=== PATIENT | male | born 1985 | race Caucasian/White ===

== ENCOUNTER 2016-11-04 15:28 | Emergency (ER) | payer OTHER ==
[~2016-11-04] VITALS: Ht 188 cm; Wt 149.1 kg
[2016-11-04 15:30] VITALS: TEMP 36.9; Ht 188 cm; Wt 149.1 kg
--- NOTE | 2016-11-04 16:11 | EMERGENCY ROOM VISIT NOTE ---
ED Visit Note First contact with patient: 15:34 CHIEF COMPLAINT: Finger laceration HISTORY OF PRESENT ILLNESS: This 31-year-old male patient presents to the emergency department approximately 2 hours after cutting the left index finger on the palmar aspect with a kitchen knife he was using to cut ham at work. He states the knife slipped while slicing when it caught his finger. Pt. finished his work day and controlled bleeding with a pressure bandage he applied. The bleeding has stopped with direct pressure. Denies weakness or numbness of the finger. The patient has full range of motion of the fingers. The patient rates the pain as minimal and 1-2/10. The patient denies any other injuries. The patient's tetanus shot is up to date. The patient denies injury to the hand or wrist. Despite elevated BP, patient denies chest pain, dyspnea, headache, dizziness, blurry vision, PND, or other associated symptoms. REVIEW OF SYSTEMS: A 10 system review of systems was completed with positives and pertinent negatives listed in the HPI. ALLERGIES: Penicillin MEDICATIONS: None PMH: None, however, patient states last time he saw a physician, several years ago, his BP might have been slightly elevated. SOCIAL HISTORY: Patient lives locally. He does not use tobacco, quit smoking cigarettes 2 months ago but does admit to drinking approximately 3 beers per day. PHYSICAL EXAM: Vital Signs: Reviewed Nurse's notes, Blood pressure elevated. GENERAL: 31-year-old male, in no acute distress, well developed, well nourished. SKIN: There is a 1 cm long superficial laceration on the palmar aspect of the index finger. The edges gape apart with traction align nicely on their own. There is no foreign material in the wound and it looks clean. There is minimal bleeding. No deep structures such as tendons, bones, or significant blood vessels are seen in the base of the wound. Extension and flexion of the finger is full and strong. Full range of motion of the wrist and other fingers. Capillary refill less than 2 seconds. Normal sensation to light and sharp touch. EMERGENCY DEPARTMENT COURSE: I examined the patient. Verbal consent was obtained to perform the procedure. The wound was copiously irrigated under pressure with sterile saline. The wound was explored and there were no deep structures injured. The laceration was repaired using Dermabond. The patient tolerated the procedure well. Hemostasis was achieved. The area was cleaned with sterile saline and left open. The patient was discharged home in good condition. DIAGNOSIS: Finger laceration DIFFERENTIAL DIAGNOSIS: Contusion, abrasion. DISCHARGE INSTRUCTIONS & TREATMENT: Keep wound clean and dry. Do not pick at glue. You may wash your hands as normal, but recommended wearing a glove at work while working with food. Return sooner for any signs of infection ( increasing redness, swelling, drainage). Ice and elevate for swelling and pain. Ibuprofen 600 mg and Tylenol 1000 mg every 6 hrs for pain. Due to elevated blood pressure, pt. should contact his PCP regarding follow-up for possible treatment. Pt. states he will call tomorrow to set up an appointment for next week. He does not wish to be treated in the ED for blood pressure at this time. Current/Historical Medications No Active Prescriptions or Reported Meds Allergies Coded Allergies: Penicillins (Unverified Allergy, Mild, 01/08/11) Vital Signs Date Time Temp Pulse Resp B/P (MAP) Pulse Ox O2 Delivery O2 Flow Rate FiO2 11/04/16 17:20 109 20 162/110 99 Room Air 11/04/16 16:43 188/137 11/04/16 15:30 36.9 117 20 182/105 98 Room Air Departure Information Impression Primary Impression: Laceration of finger Additional Impression: Elevated blood pressure reading in office without diagnosis of hypertension Dispostion Home / Self-Care Condition GOOD Prescriptions No Active Prescriptions or Reported Meds Referrals No Doctor, Assigned (PCP) Patient Instructions [facility] Additional Instructions WOUND CARE INSTRUCTIONS: Your laceration was repaired with skin glue. You may wash hands and get it wet as normally, but avoid vigorous scrubbing, if possible. Do not pick at the glue , it will fall off naturally. Be sure to wear a glove while working with food. Tylenol 1000mg every 6 hours for as needed for pain. Apply direct pressure for any bleeding. Return to the ER immediately for spreading redness, fevers, pus-like drainage, severe pain, or as needed. Follow-up with your primary care physician in 2 to 3 days for a recheck of your current condition. Noted elevated blood pressure in the ED. Blood pressure continued to be elevated after wound closure with recheck. Patient was advised to follow-up with his primary care provider regarding elevation in blood pressure. Problem Qualifiers Primary Impression: Laceration of finger Encounter type: initial encounter Qualified Codes: S61.219A - Laceration without foreign body of unspecified finger without damage to nail, initial encounter
[2016-11-04 17:20] VITALS: BP 162/110; PULSE 109; O2SAT 99
== END 2016-11-04 17:42 | disposition home or self-care (01) ==
LOC: C.EDB 15:29 → C.EDD 17:42
DX: S61.211A Laceration without foreign body of left index finger without damage to nail, initial encounter (principal); W26.0XXA Contact with knife, initial encounter; R03.0 Elevated blood-pressure reading, without diagnosis of hypertension; Z87.891 Personal history of nicotine dependence; Z88.0 Allergy status to penicillin